=== PATIENT | female | born 2005 | race Caucasian/White ===

== ENCOUNTER 2024-11-24 06:39 | Outpatient (REF) | payer BC, SELFPAY ==
--- NOTE | ~2024-11-24 | US_ITS ---
CLINICAL HISTORY: PELVIC PAIN, CHECK IUD PLACEMENT Transabdominal and transvaginal pelvic ultrasound Comparison: None Findings: Uterus 7.4 x 2.9 x 3.6 cm. Endometrium 3 mm. IUD is never wellvisualized. No significant free fluid. Right ovary 3.4 x 2.2 x 2.9 cm. Left ovary 3.3 x 2.0 x 2.1 cm. No significant focal abnormality. Impression: No significant abnormality This document has been electronically signed by: Deric Martinez MD on 11/24/2024 19:10:17
--- OUTSIDE RECORDS SUMMARY | 2024-11-24 06:41 | XMS_ITS | Data Portability ---
Author Organization [place] - [facility], [place] [place] Address [address] [place] [address] Care Team Providers Care Roofing Technician Name Role Phone EZEQUIEL DOWNING Primary Care Provider [phone] Assessment Encounter Date Assessment Date Assessment LastModified by Organization Details LastModified Time 04/06/2024 04/06/2024 Consent: Verbal consent from the patient for a telemedicine visit was obtained at the time of the service. The patient understands not all conditions can be adequately evaluated and treated through a virtual visit and may require an in-person medical evaluation. The patient understands that there may be co-pay / cost for the visit. Patient's verbal consent obtained by Physician/Provid er: Yes Telemedicine Communication method: misa Telehealth Video The physical location of the patient: pt's home The physical location of the physician/provid er: office The names of all persons participating in the telemedicine service and their role in the encounter. (if family members are in video) n/a [email or web address] Not available 04/06/2024 12:25:05 Plan of Treatment Reminders Order Date Submit Date Provider Last Modified By Organization Details Last Modified Time Details Appointments None recorded. Lab CT + NG DNA, PCR, unspecified specimen 2023 024 MISA [facility], [address] [place] [address], [place], [address], 04:28:15 Referral None recorded. Procedures None recorded. Surgeries None recorded. Imaging None recorded. Medication Orders Wellbutrin XL 150 mg 24 hr tablet, extended release 2023 024 eelgert [id number], [address], [place], [address], 14:18:31 Patient TargetsNo targets recorded. Patient Instructions Encounter Date Encounter Id Patient Instructions Last Modified By Organization Details Last Modified Time 12/29/2023 [id number] gastroesophageal reflux disease (GERD): care instructions [email or web address] Not available 12/29/2023 09:40:52 A healthy lifest yle: care instructions [email or web address] Not available 12/29/2023 09:37:43 Well Visit, Ages 18 to 65: Care Instructions [email or web address] Not available 12/29/2023 09:37:43 Discussed releva nt USPSTF recommendations including within the following: - Pap every 3 years during ages 21-65, or every 5 years when combined with HPV testing in women 30-65. - Mammogram every 1-2 years starting at age 40. - Chlamydia & Gonorrhea screening in sexually active women age 24 years or younger and in older women who are at increased risk for infection. - Folic acid supplementation of 0.4 - 0.8 mg daily in women of child bearing age. - HIV screening for ages 15 - 65 and in younger adolescents at risk. - Screening for hepatitis B & C virus infection in persons at high risk for infection. - Osteoporosis screening in women age 65 and older and in younger women whose fracture risk is equal to or greater than that of a 65-year-old white woman who has no additional risk factors. Other Recommendations: - Annual Dental exam. - Regular exercise and appropriate diet. - Calcium supplementation 200 mg day with 2000 IU Vit D3. - Limited caffeine, salt, alcohol, and intake. - Seat belt use. - Safe sex practices. - Sunscreen recommended. Please utilize the following resources to find a counselor: 1. www.[employer]. [employer] 2. www.[employer] 3. www.[employer] 4. www.[employer] [email or web address] Not available 12/29/2023 09:38:51 Reason for Referral None Reported. Results Created Date Observation Date Name Description Value Unit Range Abnormal Flag Note LastModifiedBy Organization Detail LastModifiedTime 12/29/19 24 12/29/2023 ELENA NORMAN/ GONOR RHOEA E PCR source Urine Not Available [facility]eda [facility] [address] [place] [address], [address], 12/31/2023 12:12:43 12/29/19 24 12/31/2023 CHLAM YDIA/ GONOR RHOEA E PCR C. trachomatis PCR Negati ve negati ve Not Available [facility] [address] [place] [address], [address], 12/31/2023 12:12:43 12/29/19 24 12/31/2023 CHLAM YDIA/ GONOR RHOEA E PCR N. gonorrhoeae PCR Negati ve negati ve Test perfo rmed by rRNA nucle ic acid ampli ficat ion by MARIA LUISA POWER. Not Available [address], [address], 12/31/2023 12:12:43 Result Notes None recorded. Problems Name Problem SNOMED Code Status Onset Date Resolution Date Notes Provider Name and Address Organization Details Recorded Time Depressive disorder 32268010 Active 2023 LOREN ADEN NP [address] [place] [address], [phone], [facility] 4 09:19:54 Attention deficit hyperactivity disorder 004831348 Active 2023 LOREN ADEN NP [address] [place] [address], [address], [facility] 4 09:19:59 Gastroesophage al reflux disease without esophagitis 672225837 Active 2023 LOREN ADEN NP [address] [place], [address], [facility] 4 09:34:32 Problem Notes None recorded. Procedures Surgical History Date Name Laterality Status Provider Name and Address Organization Details Recorded Time [place] Teeth Extraction completed LOREN ADEN NP [address] [place], [address], [facility] 12/29/2023 07:18:30 Imaging Results None recorded. Procedure Notes None recorded. Medical Equipment None Reported. Allergies Allergen ID Allergen Name Allergen Category Reaction Reaction Severity Criticality Documentation Date Start Date Code Code System Note Provider Name and Address Organization Details Recorded Time 402428 Cefzil medicatio n hives Not available Not available 12/29/2023 77325 1 RxNorm LOREN ADEN NP [address] [place], [address] [place] [address] [facility] 4 07:17:47 Medications Name Sig Start Date Stop Date Status Note LastModified by Organization Details LastModified Time bupropion HCl XL 150 mg 24 hr tablet, extended release TAKE 1 TABLET BY MOUTH EVERY DAY 024 active PCP- lv 4 nv 4 lrx 01/27 #90/0r f Not Available Not Available Not Available Vienva 0.1 mg-20 mcg tablet Take 1 tablet every day by oral route. active Not Available Not Available No t Available Vitals Date Recorded Body weight Body mass index (BMI) Percentile per age and sex Body mass index (BMI) Body height Oxygen saturation Oxygen saturation in Arterial blood by Pulse oximetry Heart rate Systolic blood pressure Diastolic blood pressure Provider Name and Address Organization Details Last Updated DateTime 4 49914.7 7 g 94 % 31.8 kg/m2 157.48 cm 98 % 98 % 85 /min 118 mm[Hg] 84 mm[Hg] Kayla Lovelace RN [facility] 4 09:11:28 Date Recorded Body height Body mass index (BMI) Body weight Heart rate Oxygen saturation Oxygen saturation in Arterial blood by Pulse oximetry Systolic blood pressure Diastolic blood pressure Provider Name and Address Organization Details Last Updated DateTime 4 157.48 cm 31.8 kg/m2 04220.0 7 g 102 /min 98 % 98 % 102 mm[Hg] 70 mm[Hg] Emma cummings RN [place] - [facility] 4 14:48:04 Date Recorded Body height Provider Name an d Address Organization Details Last Updated DateTime 04/06/2024 157.48 cm Kayla Lovelace RN [place] - [facility] 04/06/2024 10:20:00 Social History Question Answer Notes LastModified by Organizat ion Details LastModified Time Tobacco Smoking Status Never Smoker Kayla Lovelace RN [facility], [place] - [facility] 12/29/2023 09:07:47 Do You Wear A Helmet When Biking? Yes [email or web address] Information not available 12/29/2023 What Type Of Diet Are You Following? REGULAR [email or web address] Information not available 12/29/2023 What Is The Highest Grade Or Level Of School You Have Completed Or The Highest Degree You Have Received? [id number] [email or web address] Information not available 12/29/2023 Have There Been Any Changes To Your Family Or Social Situation? No [email or web address] Information no t available 12/29/2023 Who Lives At Home With You? Parents [email or web address] Information not available 12/29/2023 Fall Screen No Falls In The Past Year [email or web address] Information not available 12/29/2023 Fall Screen Date 12/30/2023 Inform ation not available 12/29/2023 Domestic Violence None [email or web address] Infor mation not available 12/29/2023 Service No [email or web address] Inform ation not available 12/29/2023 What Was The Date Of Your Most Recent Tobacco Screening? 12/30/2023 [email or web address] Information not available 12/29/2023 How Many Children Do You Have? 0 [email or web address] Information not available 12/29/2023 Do You Have Any Pets? Yes Dog [email or web address] Information not available 12/29/2023 What Is Your Relationship Status? Single [email or web address] Information not available 12/29/2023 Do You Use Your Seat Belt Or Car Seat Routinely? Yes [email or web address] Information not available 12/29/2023 Do You Have Smoke And Carbon Monoxide Detectors In Your Home? Yes [email or web address] Information not available 12/29/2023 Are You Passively Exposed To Smoke? No [email or web address] Information no t available 12/29/2023 Do You Use Sunscreen Routinely? Yes [email or web address] Information not available 12/29/2023 Sex: Unknown Functional Status Question Answer Note LastModified by Organizat ion Details LastModified Time Do you use any illicit or recreational drugs? No Information not available 12/29/2023 Do you or have you ever used any other forms of tobacco or nicotine? No [email or web address] Information not available 12/29/2023 What is your level of alcohol consumption? Occasional 1-2x/wee k [email or web address] Information not available 12/29/2023 Are you currently employed? 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 Occasional [email or web address] Information not available 12/29/2023 Mental Status None recorded. Family History Relationship Description Onset Age of this Age Resolved Age Notes LastModified by Organization Details LastModified Time Father Hypercholest erolemia [email or web address] Not available 09:04:14 Father Hypertensive disorder [email or web address] Not available 09:04:23 Sister Bipolar disorder [email or web address] Not available 09:05:18 Paternal Grandmother Bipolar disorder [email or web address] Not available 09:05:18 Medical History No medical history recorded. Gynecological History Statement/Question Response Date of LMP 11/26/2023 Obstetrics History GPAL:G 0 P 0 0 0 0 Immunizations Vaccine Type Date Status Note Provider Nam e and Address Organization Details Recorded Time DTaP, unspecified formulation 3 completed GAYLE Carbone, [facility] 12/29/2023 08:46:29 DTaP, unspecified formulation 3 completed Kayla Lovelace RN null, [facility] 12/29/2023 08:47:06 DTaP, unspecified formulation 3 completed GAYLE Carbone, [facility] 12/29/2023 08:47:36 DTaP, unspecified formulation 4 completed GAYLE Carbone, [facility] 12/29/2023 08:48:08 DTaP, unspecified formulation 7 completed GAYLE Carbone, [facility] 12/29/2023 08:48:37 IPV 3 completed GAYLE Carbone, [facility] 12/29/2023 08:50:23 IPV 3 completed GAYLE Carbone, [facility] 12/29/2023 08:50:53 IPV 4 completed Kayla Lovelace RN null, [facility] 12/29/2023 08:51:15 IPV 7 completed Kayla Lovelace RN null, [facility] 12/29/2023 08:51:33 Novel Hmwoixvsc-S8P5-12, all formulations 9 completed Kayla Lovelace RN null, [facility] 12/29/2023 08:52:53 Novel Renfheljs-M0E4-75, all formulations 0 completed Kayla Lovelace RN null, [facility] 12/29/2023 08:53:11 Tdap 4 completed LOREN ADEN NP [address] [place] [address], [address], [facility] 12/29/2023 09:37:44 Past Encounters Encounter ID Performer Location Encounter Start Date Encounter Closed Date Diagnosis/Indication Diagnosis SNOMED-CT Code Diagnosis ICD10 Code Diagnosis Note [id number] LOREN ADEN NP [address] [address] 12/29/2023 08:54:30 12/29/2023 09:53:52 Adult health examination 105983079 Z00.00 Recommend sunscreen in sun, q6 month dental exams, seat belts in car, and eye exams if applicable . Although studies are controvers ial if it helps with bone health or not, I recommend at least 500 - 1000 mg calcium and 2000 units vitamin D2 daily split up to 2 times a day to aide absorption . Recommend Folic acid supplement ation of 0.4 - 0.8mg daily in women of child bearing age for possible future health. Recommend regular exercise at least 30 min daily and healthy well balanced diet. It is not necessaril y recommende d to do self breast exams but if deciding to do them, make sure to do it at the same time every month, preferably after menses (if applicable ). Reviewed PHQ-2 and 9 including concerns about any positive score. Reviewed prevention and [place]x Depression screening 171 950083 Z13.31 5 min or greater total time, including provider and clinical staff time, was spent in discussion with the patient, administer ing the screening tool, the time for the patient to complete the tool, calculatin g results and reviewing the screening tool results with the patient, including the implicatio ns of the results and answered any questions from the patient. Please refer to the depression screening tool for additional details. [facility] screening 761223014 Z13.39 ROBERTA-7 Screening tool was completed for annual anxiety screening and reviewed with pt. Screening for alcohol abuse 644827848 Z13.39 Alcohol Use Disorder Screenin min or greater total time, including provider and clinical staff time, was spent in discussion with the patient, administer ing the screening tool, the time for the patient to complete the tool, calculatin g results and reviewing the screening tool results with the patient, including the implicatio ns of the results and answered any questions from the patient. Please refer to the alcohol use disorder screening tool for additional details. Active or passive immunization 050131434 Z23 Venereal d isease screening 375902977 Z11.3 Moderate m ajor depression, single episode 49276535 F32.1 -- Ongoing-- Discussed treatment options, pt hesitant to start medication s today but discussed possible options-- Encouraged to look into therapy as well-- Encouraged to work on coping-- No safety concerns-- PHQ9 completed, score reviewed with patient-- FU 1 mo Adult atte ntion deficit hyperactivity disorder 237095539 F90.9 -- Dx'd 3 yrs ago, has never been on medication -- Discussed treatment options, pt would like to discuss with her family and do her own research-- Will FU in 1 mo to discuss med options further Gastroesop hageal reflux disease without esophagitis 897797191 K21.9 -- Ongoing-- Discussed lifestyle management including avoidance of triggers-- OK to use OTC tums or pepcid as needed-- FU as needed Obesity 891041321 E66.9 {{1 2 3 4 5 6 7 8* 9 10 11 12 13 14 15}} minutes were spent reviewing diet, exercise, and weight loss. Reviewed simple calorie restrictio ns, decreased carbohydra sandra, decreased trans fats, and decreased sugar. Increase fresh fruits and vegetables . Reviewed increasing exercise as tolerated to 5 times a week to include regular cardiovasc ular exercise for at least 30 minutes, as tolerated. Reviewed complicati ons of morbid obesity to include joint pain, osteoarthr itis, diabetes, fatty liver disease, HTN, and lipid disorder Counseled on diet, physical activity, behavioral modificati on, and goals for weight loss discussed. Reviewed multiple options for assistance such as Weight Watchers, Overeaters Anonymous, Dietitian, and [place] weight loss. Reviewed surgical options as indicated. Reviewed medication options as indicated Patient was assessed for obesity. Advised on methods for weightloss . Agreed to plan. Assisted with options for losing weight. Arranges follow up care. Body mass index 30+ - obesity 825650002 Z68.31 -- As above [id number] LOREN ADEN NP [address] [address] 01/28/2024 14:42:06 01/28/2024 15:22:31 Moderate major depression, single episode 70977017 F32.1 -- Ongoing-- Discussed treatment options, will start on wellbutrin xl 150 mg daily; reviewed med use and side effects-- Encouraged to look into therapy as well-- Encouraged to work on coping-- PHQ9 completed, score reviewed with patient-- No safety concerns-- FU 8-10 wks or sooner as needed Adult atte ntion deficit hyperactivity disorder 805405516 F90.9 -- Dx'd 3 yrs ago, has never been on medication -- Discussed treatment options, pt would like to hold off on meds for now to see if wellbutrin helps with symptom management Gastroesop hageal reflux disease without esophagitis 860966375 K21.9 -- No current complaints -- Discussed lifestyle management including avoidance of triggers-- OK to use OTC tums or pepcid as needed-- FU as needed Obesity 354093786 E66.9 Briefly reviewed simple calorie restrictio ns, decreased carbohydra sandra, decreased trans fats, and decreased sugar. Increase fresh fruits and vegetables . Reviewed increasing exercise as tolerated to 5 times a week to include regular cardiovasc ular exercise for at least 30 minutes, as tolerated. Reviewed complicati ons of morbid obesity to include joint pain, osteoarthr itis, diabetes, fatty liver disease, HTN, and lipid disorder Counseled on diet, physical activity, behavioral modificati on, and goals for weight loss discussed. Body mass index 30+ - obesity 878707871 Z68.31 -- As above Depression screening 171 Z13.31 5 min or greater total time, including provider and clinical staff time, was spent in discussion with the patient, administer ing the screening tool, the time for the patient to complete the tool, calculatin g results and reviewing the screening tool results with the patient, including the implicatio ns of the results and answered any questions from the patient. Please refer to the depression screening tool for additional details. [facility] screening 192489894 Z13.39 ROBERTA-7 Screening tool was completed for annual anxiety screening and reviewed with pt. [id number] LOREN ADEN NP [address] [address] 04/06/2024 10:18:59 04/06/2024 11:22:35 Moderate major depression, single episode 80093128 F32.1 -- Symptoms improved with wellbutrin , will continue-- Encouraged to work on coping-- PHQ9 completed, score reviewed with patient-- No safety concerns-- FU 3-4 mo's Adult atte ntion deficit hyperactivity disorder 838887823 F90.9 -- Dx'd 3 yrs ago, has never been on medication -- Wellbutrin not helping with symptoms, pt would like to consider meds but hesitant to start now, plan to discuss at next visit Gastroesop hageal reflux disease without esophagitis 816377373 K21.9 -- No current complaints -- Discussed lifestyle management including avoidance of triggers-- OK to use OTC tums or pepcid as needed-- FU as needed Obesity 291804540 E66.9 Briefly reviewed simple calorie restrictio ns, decreased carbohydra sandra, decreased trans fats, and decreased sugar. Increase fresh fruits and vegetables . Reviewed increasing exercise as tolerated to 5 times a week to include regular cardiovasc ular exercise for at least 30 minutes, as tolerated. Reviewed complicati ons of morbid obesity to include joint pain, osteoarthr itis, diabetes, fatty liver disease, HTN, and lipid disorder Counseled on diet, physical activity, behavioral modificati on, and goals for weight loss discussed. Body mass index 30+ - obesity 901215371 Z68.31 -- As above Depression screening 171 Z13.31 5 min or greater total time, including provider and clinical staff time, was spent in discussion with the patient, administer ing the screening tool, the time for the patient to complete the tool, calculatin g results and reviewing the screening tool results with the patient, including the implicatio ns of the results and answered any questions from the patient. Please refer to the depression screening tool for additional details. [facility] screening 023474887 Z13.39 ROBERTA-7 Screening tool was completed for annual anxiety screening and reviewed with pt. Health Concerns Section Related Observation LastModified by Organization Detai ls LastModified Time None Recorded Concern Status LastModified by Organization Details LastModified Time None Recorded Advance Directives Directive None Recorded Payers Insurance Date Sequence Insurance Name Policy Number Policy Weller Covered Member ID Weller Member ID Guarantor Name 08/01/2024 1 [place] [id number] Kelsi Bailey [id number] Loren Cobos 12/08/2023 1 [facility] Loren Cobos [id number] Loren Cobos Notes Date Note Type Note Provider Name and Address Organization Details Recorded Time 12/29/2023 text/html 18 yo female who presents for CPE. Patient new to office. Reviewed all medical history, previous medications, surgeries, hospitalizations, family history, and social history.- Pap: n/a for age- LMP: 11/26/23, regular on OCP- Tetanus booster: due- COVID Vaccine:- Discussed alcohol/ drug abuse: Occasional alcohol, no current drug use, never IVDU- Tobacco: none- Discussed safe sex: Currently active, 1 partner- Wearing sunscreen in sun: Yes- Wearing seat belts in car: Yes- Dentist: Yes- Eye exam: no complaints- Exercise: walking her dog- Depression: Reviewed PHQ-2 & 9 Currently studying Environmental Science at [employer] GERD: Having symptoms most days. Taking tums or pepcid rarely. Knows that spicy or acidic foods trigger symptoms. MOOD: dx'd with ADHD approx 3 yrs ago. Has never been on meds but is considering something since she struggles with task management and procrastination. Does test well though. Also has depression. Hesitant about meds for depression since many of her family members have had adverse reactions to meds in the past. Denies safety concerns, no si/hi. LOREN ADEN NP [address] [place], [address], [facility] 12/29/2023 09:41:10 01/28/2024 text/html 19 yo female who presents for mood fu GERD: No current concerns---- HISTORY: Having symptoms most days. Taking tums or pepcid rarely. Knows that spicy or acidic foods trigger symptoms. MOOD: Had previously been hesitant to start medications for her depression but has been struggling since her last visit. Feeling very low, unmotivated. Sister taking wellbutrin with positive effect but she notes that her sister also has bipolar so didn't know if this med would also be appropriate for her. Denies safety concerns, no si/hi.---- HISTORY: dx'd with ADHD approx 3 yrs ago. Has never been on meds but is considering something since she struggles with task management and procrastination. Does test well though. Also has depression. Hesitant about meds for depression since many of her family members have had adverse reactions to meds in the past. LOREN ADEN NP [address] [place], [address], [facility] 01/28/2024 15:23:37 04/06/2024 text/html 19 yo female who presents for mood fu GERD: No current concerns---- HISTORY: Having symptoms most days. Taking tums or pepcid rarely. Knows that spicy or acidic foods trigger symptoms. MOOD: Mood improved since starting wellbutrin but noting still having trouble with task management, attention and some issues with motivation. Thinks that while mood was address, ADHD symptoms are now more apparent. Compensating well in school though so she is hesitant to do anything at the moment to address the ADHD. Denies safety concerns, no si/hi.- Medication: wellbutrin XL 150 mg daily---- HISTORY: dx'd with ADHD approx 3 yrs ago. Has never been on meds but is considering something since she struggles with task management and procrastination. Does test well though. Also has depression. Hesitant about meds for depression since many of her family members have had adverse reactions to meds in the past. LOREN ADEN NP [address] [place] [address], [id number], [facility] - [facility] 04/06/2024 12:27:13 OBGyn Episode No OBEpisode recorded.
== END 2024-11-24 06:40 | disposition home or self-care (01) ==
LOC: HO.UMASIMG 06:39
PROVIDERS: Visit Provider Nurse Practitioner Women's Health
DX: R10.2 Pelvic and perineal pain (principal); Z30.431 Encounter for routine checking of intrauterine contraceptive device
CPT/HCPCS: 76830; 76856

== ENCOUNTER → 2024-11-24 14:00 | Outpatient (BNV) | payer BC, SELFPAY | PROVIDERS: Visit Provider Radiology Diagnostic Radiology | DX: R10.2 Pelvic and perineal pain (principal) | CPT/HCPCS: 76830; 76856 ==